=== PATIENT | male | born 1985 | race Caucasian/White ===

== ENCOUNTER 2017-06-11 13:30 | Emergency (ER) | payer MEDICAID ==
[~2017-06-11] VITALS: Ht 182.9 cm; Wt 71.8 kg
[~2017-06-11 13:30] MED LIST: HYDR-838 PO; LIBRIUM PO
[2017-06-11 13:33] VITALS: BP 128/79
[2017-06-11] MEDS ORDERED: IBUPROFEN 200 MG TABLET ONE ×2 (14:26)
[2017-06-11] MEDS ORDERED: IBUPROFEN 200 MG TABLET PO ONE (14:30)
== END 2017-06-11 15:02 | disposition home or self-care (01) ==
LOC: ED 14:55
DX: J20.8 Acute bronchitis due to other specified organisms (principal); J00 Acute nasopharyngitis [common cold]; B97.89 Other viral agents as the cause of diseases classified elsewhere
CPT/HCPCS: 71046; 99284

== ENCOUNTER 2019-07-16 13:11 | Emergency (ER) | payer MEDICAID, OTHER, SELFPAY ==
[~2019-07-16] VITALS: Ht 182.9 cm; Wt 73.0 kg
--- NOTE | 2019-07-16 13:30 | NUR ---
PT STATES HE HAS BODY ACHES AND WANTS TO BE TESTED FOR COVID. PT HYPERVENTLATING AND HAS NUMBNESS BODY. ENCOURAGED TO SLOW BREATHING DOWN AND THAT HE WILL BE OK
[2019-07-16] MEDS ORDERED: LIDOCAINE-MPF 1%, 2ML ONE (14:44)
[2019-07-16] MEDS ORDERED: CEFTRIAXONE 1,000 MG ONE (14:44)
[2019-07-16 14:56] VITALS: BP 142/83
[2019-07-16] MEDS ORDERED: CEFTRIAXONE 1,000 MG IM ONE (15:00)
--- NOTE | 2019-07-16 15:34 | NUR ---
PT GIVEN DISCHARGE INCLUDING RESOURCES FOR PRESCRIPTION FILL. AMBULATED FROM ER, STEADY GAIT.
== END 2019-07-16 15:36 | disposition home or self-care (01) ==
LOC: ED 14:01
DX: J18.0 Bronchopneumonia, unspecified organism (principal); Z20.828 Contact with and (suspected) exposure to other viral communicable diseases; M79.10 Myalgia, unspecified site; F17.200 Nicotine dependence, unspecified, uncomplicated
CPT/HCPCS: 71045; 96372; 99284; J0696; 99283

== ENCOUNTER 2019-11-26 12:44 | Emergency (ER) | payer SELFPAY ==
[~2019-11-26] VITALS: Ht 182.9 cm; Wt 80.4 kg
[2019-11-26 13:50] LABS: TROPONIN I < 0.015 ng/mL (0.000-0.045)
[2019-11-26 14:21] VITALS: BP 113/59
== END 2019-11-26 14:25 | disposition home or self-care (01) ==
LOC: ED 13:45
DX: M94.0 Chondrocostal junction syndrome [Tietze] (principal); F11.10 Opioid abuse, uncomplicated; R07.89 Other chest pain; R05 Cough; F17.290 Nicotine dependence, other tobacco product, uncomplicated; Z90.10 Acquired absence of unspecified breast and nipple
CPT/HCPCS: 36415; 71045; 84484; 93005; 99285